=== PATIENT | female | born 1955 | race Caucasian/White ===

== ENCOUNTER 2021-06-26 21:56 | Emergency (ER) | payer BC ==
[2021-06-26 22:27] LABS: HEMOGLOBIN 11.2 gm/dl (12.3-15.3); RED BLOOD COUNT 4.7 M/UL (4.00-5.10); WHITE BLOOD COUNT 7.6 K/UL (4.5-11.0)
[2021-06-26 22:48] LABS: BUN/CREATININE RATIO 20 (0-10)
[2021-06-27] MEDS ORDERED: AUGMENTIN 875-1 EACH PO (02:53)
[2021-06-27] MEDS ORDERED: ZOFRAN ODT 4 MG4 MG PO (02:53)
[2021-06-27] MEDS ORDERED: BENTYL 20MG TAB20 MG PO (02:53)
[2021-06-27] MEDS ORDERED: FLORASTOR250 MG PO (02:53)
[2021-06-27] MEDS ORDERED: K-DUR TAB 10 M10 MEQ PO (02:53)
== END 2021-06-27 03:06 | disposition home or self-care (01) ==
LOC: ER1 21:56
PROVIDERS: Physician Assistant
DX: R10.84 Generalized abdominal pain (principal); R11.2 Nausea with vomiting, unspecified; E87.6 Hypokalemia; E87.1 Hypo-osmolality and hyponatremia; Z90.49 Acquired absence of other specified parts of digestive tract; Z90.89 Acquired absence of other organs
CPT/HCPCS: 71260; 80053; 81001; 83690; 85025; 87086; 96374; 96375; 96376; 99284; J1885; J2405; Q9967

== ENCOUNTER 2021-11-25 09:28 | Inpatient (IN) | payer BC ==
[~2021-11-25] VITALS: Ht 149.9 cm; Wt 52.7 kg
[~2021-11-25 09:28] MED LIST: AUGMENTIN 875-1 EACH PO; BENTYL 20MG TAB20 MG PO; FLORASTOR250 MG PO; K-DUR TAB 10 M10 MEQ PO; ZOFRAN ODT 4 MG4 MG PO
[2021-11-25 13:39] LABS: RED BLOOD COUNT 4.58 M/UL (4.00-5.10); WHITE BLOOD COUNT 6.1 K/UL (4.5-11.0)
[2021-11-25 14:08] LABS: BUN/CREATININE RATIO 19 (0-10)
[2021-11-25] MEDS ORDERED: CORGARD20 MG PO (14:58)
[2021-11-25] MEDS ORDERED: CYMBALTA60 MG PO (14:58)
[2021-11-25] MEDS ORDERED: FUROSEMIDE80 MG PO (14:59)
[2021-11-25] MEDS ORDERED: OMEPRAZOLE20 MG PO (14:59)
[2021-11-25] MEDS ORDERED: SPIRONOLACTONE100 MG PO (14:59)
[2021-11-25] MEDS ORDERED: VITAMIN E100 UNI2 PO (15:00)
[2021-11-25] MEDS ORDERED: CALCIUM + VITA1 EACH PO (15:00)
[2021-11-26 04:03] LABS: HEMOGLOBIN 9.6 gm/dl (12.3-15.3); RED BLOOD COUNT 4.4 M/UL (4.00-5.10); WHITE BLOOD COUNT 4.9 K/UL (4.5-11.0)
[2021-11-26 04:58] LABS: BUN/CREATININE RATIO 21 (0-10)
[2021-11-27 08:41] LABS: RED BLOOD COUNT 4.67 M/UL (4.00-5.10)
[2021-11-27 08:42] LABS: WHITE BLOOD COUNT 7.2 K/UL (4.5-11.0)
[2021-11-27 09:02] LABS: BUN/CREATININE RATIO 23 (0-10)
[2021-11-27] MEDS ORDERED: ZOFRAN 4 MG TAB4 MG PO (09:57)
[2021-11-27] MEDS ORDERED: LOVENOX40 MG/0.4 SQ (09:57)
[2021-11-27] MEDS ORDERED: ENDOCET 7.5-321 EACH PO (09:57)
[2021-11-28 03:10] LABS: HEMOGLOBIN 7.1 gm/dl (12.3-15.3); RED BLOOD COUNT 3.31 M/UL (4.00-5.10)
--- NOTE | 2021-11-28 03:24 | NUR ---
PATIENT HAS RT HIP REPAIR SURGERY 11/27/2021. HER BP WAS LOW AT 86/[address] KAY GAVE ORDER TO [facility] 500ML. WHEN HER LABS RESULTED HER HGB CAME BACK AT 7.1. IT WAS 10.0 PRIOR TO SURGERY. NOTIFIED DR. AKY; ORDER TO TRANSFUSE 2 UNITS PRBC. I CHECKED WITH THE BLOOD BANK AND HER TYPE AND SCREEN IS GOOD UNTIL 1 PM TODAY 11/28/2021 NOTIFIED THE BLOOD BANK, WILL GET CONSENT AND TRANSFUSE WHEN READY.
[2021-11-29 04:50] LABS: RED BLOOD COUNT 4.21 M/UL (4.00-5.10); WHITE BLOOD COUNT 6.8 K/UL (4.5-11.0)
[2021-11-29 04:52] LABS: HEMOGLOBIN 10.2 gm/dl (12.3-15.3)
[2021-11-29 04:58] LABS: BUN/CREATININE RATIO 36 (0-10)
[2021-11-30 04:11] LABS: HEMOGLOBIN 10.9 gm/dl (12.3-15.3); RED BLOOD COUNT 4.51 M/UL (4.00-5.10); WHITE BLOOD COUNT 5.9 K/UL (4.5-11.0)
[2021-11-30 04:26] LABS: BUN/CREATININE RATIO 33 (0-10)
[2021-12-01 06:53] LABS: HEMOGLOBIN 9.9 gm/dl (12.3-15.3); RED BLOOD COUNT 4.17 M/UL (4.00-5.10); WHITE BLOOD COUNT 5.5 K/UL (4.5-11.0)
[2021-12-01 07:10] LABS: BUN/CREATININE RATIO 27 (0-10)
[2021-12-01] MEDS ORDERED: ALDACTONE 25MG25 MG PO (10:22)
[2021-12-01] MEDS ORDERED: PATIENT'S OWN MEDICA SC (10:22)
--- NOTE | 2021-12-01 12:38 | NUR ---
CALLED EMS ([facility]) WHO STATES THEY WILL SEND SOMEBODY OVER TO TRANSPORT PT
== END 2021-12-01 13:05 | DRG 481 ==
LOC: ER1 09:28 → CDU 13:45 → M/S 13:45
PROVIDERS: Internal Medicine; Orthopaedic Surgery; Physician Assistant; ADMIT Family Medicine
PROC: 30233N1 Transfusion of Nonautologous Red Blood Cells into Peripheral Vein, Percutaneous Approach (ICD-10-PCS; 2021-11-27)
PROC: 0QS604Z Reposition Right Upper Femur with Internal Fixation Device, Open Approach (ICD-10-PCS; principal; 2021-11-27 08:41)
DX: S72.141A Displaced intertrochanteric fracture of right femur, initial encounter for closed fracture (principal); D62 Acute posthemorrhagic anemia; D83.9 Common variable immunodeficiency, unspecified; K76.6 Portal hypertension; D69.3 Immune thrombocytopenic purpura; R18.8 Other ascites; I42.1 Obstructive hypertrophic cardiomyopathy; Z20.822 Contact with and (suspected) exposure to COVID-19; R01.1 Cardiac murmur, unspecified; E66.9 Obesity, unspecified; F41.9 Anxiety disorder, unspecified; F32.A Depression, unspecified; I27.20 Pulmonary hypertension, unspecified; J45.909 Unspecified asthma, uncomplicated; I10 Essential (primary) hypertension; W19.XXXA Unspecified fall, initial encounter; K74.60 Unspecified cirrhosis of liver; K75.81 Nonalcoholic steatohepatitis (NASH); Z83.3 Family history of diabetes mellitus; Z98.890 Other specified postprocedural states; Z82.5 Family history of asthma and other chronic lower respiratory diseases; Z80.9 Family history of malignant neoplasm, unspecified; Z82.49 Family history of ischemic heart disease and other diseases of the circulatory system; Z84.89 Family history of other specified conditions; Z90.49 Acquired absence of other specified parts of digestive tract
CPT/HCPCS: ECHO; 36415; 36430; 71045; 73502; 73552; 73700; 76000; 80048; 80053; 82962; 85025; 85027; 85610; 85730; 86850; 86900; 86901; 86920; 86922; 93005; 93306; 96372; 97110-GP-CQ; 97116-GP-CQ; 97161; 97165; 97530-GP-CQ; 97535; 99285; A6212; C1713; J0171; J0690; J1100; J1650; J1885; J2001; J2270; J2405; J2704; J2765; J2795; J3010; P9016; U0002

== ENCOUNTER → 2022-03-07 | Outpatient (CLI) | payer BC ==
[~2022-03-07] MED LIST changes: +ACETAMINOPHEN-1 EAC1 PO; +ALDACTONE 25MG25 MG PO; +CALCIUM + VITA1 EACH PO; +CORGARD20 MG PO; +CYMBALTA60 MG PO; +ENDOCET 7.5-321 EACH PO; +FUROSEMIDE80 MG PO; +LOVENOX40 MG/0.4 SQ; +ONDANSETRON HCL4 MG PO; +PATIENT'S OWN MEDICA SC; +PROAIR HFA8.5 GM INH; +PROTONIX 40 MG40 M1 PO; +SPIRONOLACTONE100 MG PO; +VITAMIN E100 UNI2 PO; +ZOFRAN 4 MG TAB4 MG PO
[2022-03-07 13:59] LABS: ADENOVIRUS F 40/41 Not Detected (Negative); ASTROVIRUS Not Detected (Negative); CAMPYLOBACTER Not Detected (Negative); CRYPTOSPORIDIUM Not Detected (Negative); E.COLI 0157 Not Detected (Negative); ENTAMOEBA HISTOLYTICA Not Detected (Negative); ENTEROAGGREGATIVE E.COLI (EAEC Not Detected (Negative); ENTEROTOXIGENIC E.COLI (ETEC) Not Detected (Negative); GIARDIA LAMBLIA Not Detected (Negative); PLESIOMONAS SHIGELLOIDES Not Detected (Negative); ROTOVIRUS A Not Detected (Negative); SALMONELLA Not Detected (Negative); SAPOVIRUS Not Detected (Negative); SHIG/ENTEROINVAS.ECOLI (EIEC) Not Detected (Negative); SHIGA-LIK TOX.PRO.E.COLI (STEC Not Detected (Negative); VIBRIO Not Detected (Negative); VIBRIO CHOLERAE Not Detected (Negative); YERSINIA ENTEROCOLITICA Not Detected (Negative)
[2022-03-07 14:03] LABS: HEMOGLOBIN 15.2 gm/dl (12.3-15.3); RED BLOOD COUNT 5.68 M/UL (4.00-5.10)
[2022-03-07 14:34] LABS: BUN/CREATININE RATIO 28 (0-10)
[2022-03-07 16:12] LABS: CLOSTRIDIUM DIFFICILE TOX A/B Not Detected (Negative); ENTEROPATHOGENIC E.COLI (EPEC) DETECTED (Negative); NOROVIRUS GI/GII DETECTED (Negative)
== END ==
LOC: LAB 13:11
PROVIDERS: Nurse Practitioner Family
DX: K72.10 Chronic hepatic failure without coma (principal)
CPT/HCPCS: 36415; 80053; 85025; 87077; 87086; 87186; 87507

== ENCOUNTER 2022-03-09 08:05 | Inpatient (IN) | payer BC ==
[~2022-03-09] VITALS: Ht 149.9 cm; Wt 47.6 kg
[~2022-03-09 08:05] MED LIST changes: -ACETAMINOPHEN-1 EAC1 PO; -ONDANSETRON HCL4 MG PO; -PROAIR HFA8.5 GM INH
[2022-03-09 08:41] LABS: HEMOGLOBIN 14.6 gm/dl (12.3-15.3); RED BLOOD COUNT 5.44 M/UL (4.00-5.10); WHITE BLOOD COUNT 6.2 K/UL (4.5-11.0)
[2022-03-09 09:19] LABS: BUN/CREATININE RATIO 30 (0-10)
[2022-03-09] MEDS ORDERED: SPIRONOLACTONE100 MG PO (13:22)
[2022-03-09] MEDS ORDERED: ONDANSETRON HCL4 MG PO (13:23)
[2022-03-09] MEDS ORDERED: PROAIR HFA8.5 GM INH (13:23)
[2022-03-09] MEDS ORDERED: ACETAMINOPHEN-1 EAC1 PO (13:24)
[2022-03-10 06:53] LABS: BUN/CREATININE RATIO 32 (0-10)
[2022-03-11 04:20] LABS: BUN/CREATININE RATIO 32 (0-10)
[2022-03-12 07:07] LABS: HEMOGLOBIN 13.5 gm/dl (12.3-15.3); RED BLOOD COUNT 5.02 M/UL (4.00-5.10); WHITE BLOOD COUNT 5.7 K/UL (4.5-11.0)
[2022-03-12 07:21] LABS: BUN/CREATININE RATIO 36 (0-10)
[2022-03-13 08:13] LABS: HEMOGLOBIN 16.4 gm/dl (12.3-15.3); RED BLOOD COUNT 6.24 M/UL (4.00-5.10); WHITE BLOOD COUNT 11.1 K/UL (4.5-11.0)
[2022-03-13 09:07] LABS: BUN/CREATININE RATIO 36 (0-10)
--- NOTE | 2022-03-13 10:11 | NUR ---
TRIED TO CONTACT EMERGENCY CONTACT LISTED IN CHART TO UPDATE ON PT CONDITION AND ADVISE THEM OF HER DISCHARGE. NO ANSWER AT THE NUMBER LISTED IN PT CHART TRIED CALLING 3X.
--- NOTE | 2022-03-13 11:34 | NUR ---
REPORT CALLED TO [facility], AND [facility]BULANCE REQUEST FAXED AND TELEPHONE VERIFICATION MADE FOR PICK OF PT TO BE TRANSPORTED HOME.
== END 2022-03-13 15:40 | DRG 640 ==
LOC: ER1 08:05 → CDU 12:45 → MED SURG 4 12:45
PROVIDERS: Internal Medicine; Physician Assistant; ADMIT Family Medicine
DX: E83.52 Hypercalcemia (principal); G93.41 Metabolic encephalopathy; D83.9 Common variable immunodeficiency, unspecified; D69.3 Immune thrombocytopenic purpura; K76.6 Portal hypertension; R18.8 Other ascites; C79.89 Secondary malignant neoplasm of other specified sites; K74.60 Unspecified cirrhosis of liver; D64.9 Anemia, unspecified; K75.81 Nonalcoholic steatohepatitis (NASH); J45.909 Unspecified asthma, uncomplicated; F32.A Depression, unspecified; R59.9 Enlarged lymph nodes, unspecified; F41.9 Anxiety disorder, unspecified; R16.1 Splenomegaly, not elsewhere classified; D89.89 Other specified disorders involving the immune mechanism, not elsewhere classified; E86.0 Dehydration; R91.8 Other nonspecific abnormal finding of lung field; E87.6 Hypokalemia; E16.2 Hypoglycemia, unspecified; D63.0 Anemia in neoplastic disease; Z82.49 Family history of ischemic heart disease and other diseases of the circulatory system; Z90.49 Acquired absence of other specified parts of digestive tract; Z90.710 Acquired absence of both cervix and uterus; Z98.890 Other specified postprocedural states; Z84.89 Family history of other specified conditions; Z82.5 Family history of asthma and other chronic lower respiratory diseases; Z83.3 Family history of diabetes mellitus; Z51.5 Encounter for palliative care
CPT/HCPCS: 36415; 71045; 80048; 80053; 82550; 82553; 82962; 83735; 84484; 85025; 85027; 93005; 94664; 94760; 96365; 96366; 99285; J2430; J7030